=== PATIENT | female | born 1975 | race African-American/Black ===

== ENCOUNTER → 2018-10-11 | Outpatient (CLI) | payer OTHER ==
[~2018-10-11] MED LIST: ADULT LOW DOSE81 MG PO; CLOPIDOGREL75 MG PO; FENOFIBRATE54 MG PO; IRON325 PO; LIPITOR 20 MG T20 M1 PO; NICOTINE TRANSD14 M1 TRANSDERM; PHENERGAN 25 MG25 M1 PO; TAMIFLU PO; VENTOLIN17 GM INH; VICODIN 5-5001 EACH PO
== END ==
LOC: HYPER 09-23 16:21
DX: T81.89XA Other complications of procedures, not elsewhere classified, initial encounter (principal); L76.34 Postprocedural seroma of skin and subcutaneous tissue following other procedure; F17.200 Nicotine dependence, unspecified, uncomplicated; F32.9 Major depressive disorder, single episode, unspecified; F41.9 Anxiety disorder, unspecified; Z90.710 Acquired absence of both cervix and uterus; Z86.73 Personal history of transient ischemic attack (TIA), and cerebral infarction without residual deficits; Y92.89 Other specified places as the place of occurrence of the external cause; Y83.8 Other surgical procedures as the cause of abnormal reaction of the patient, or of later complication, without mention of misadventure at the time of the procedure

== ENCOUNTER → 2018-10-25 | Outpatient (CLI) | payer OTHER | LOC: HYPER 06:59 | DX: T81.31XD Disruption of external operation (surgical) wound, not elsewhere classified, subsequent encounter (principal); L76.34 Postprocedural seroma of skin and subcutaneous tissue following other procedure; F17.200 Nicotine dependence, unspecified, uncomplicated; F12.90 Cannabis use, unspecified, uncomplicated; F32.9 Major depressive disorder, single episode, unspecified; F41.9 Anxiety disorder, unspecified; Z90.710 Acquired absence of both cervix and uterus; Z86.73 Personal history of transient ischemic attack (TIA), and cerebral infarction without residual deficits; Y83.8 Other surgical procedures as the cause of abnormal reaction of the patient, or of later complication, without mention of misadventure at the time of the procedure ==

== ENCOUNTER → 2018-11-03 | Outpatient (CLI) | payer OTHER | LOC: HYPER 07:03 | DX: T81.89XD Other complications of procedures, not elsewhere classified, subsequent encounter (principal); L76.34 Postprocedural seroma of skin and subcutaneous tissue following other procedure; F32.9 Major depressive disorder, single episode, unspecified; F41.9 Anxiety disorder, unspecified; F17.200 Nicotine dependence, unspecified, uncomplicated; Z90.710 Acquired absence of both cervix and uterus; Z86.73 Personal history of transient ischemic attack (TIA), and cerebral infarction without residual deficits; Y83.8 Other surgical procedures as the cause of abnormal reaction of the patient, or of later complication, without mention of misadventure at the time of the procedure ==

== ENCOUNTER → 2018-11-24 | Outpatient (CLI) | payer OTHER | LOC: HYPER 11-15 06:50 | DX: T81.89XD Other complications of procedures, not elsewhere classified, subsequent encounter (principal); L76.34 Postprocedural seroma of skin and subcutaneous tissue following other procedure; F17.200 Nicotine dependence, unspecified, uncomplicated; F12.90 Cannabis use, unspecified, uncomplicated; F32.9 Major depressive disorder, single episode, unspecified; F41.9 Anxiety disorder, unspecified; Z86.73 Personal history of transient ischemic attack (TIA), and cerebral infarction without residual deficits; Z90.710 Acquired absence of both cervix and uterus; Y83.8 Other surgical procedures as the cause of abnormal reaction of the patient, or of later complication, without mention of misadventure at the time of the procedure ==

== ENCOUNTER → 2018-12-07 | Outpatient (CLI) | payer OTHER | LOC: HYPER 07:08 | DX: T81.89XD Other complications of procedures, not elsewhere classified, subsequent encounter (principal); L76.34 Postprocedural seroma of skin and subcutaneous tissue following other procedure; F17.200 Nicotine dependence, unspecified, uncomplicated; F12.90 Cannabis use, unspecified, uncomplicated; F32.9 Major depressive disorder, single episode, unspecified; F41.9 Anxiety disorder, unspecified; Z90.710 Acquired absence of both cervix and uterus; Z86.73 Personal history of transient ischemic attack (TIA), and cerebral infarction without residual deficits; Y83.8 Other surgical procedures as the cause of abnormal reaction of the patient, or of later complication, without mention of misadventure at the time of the procedure ==

== ENCOUNTER → 2019-04-14 | Outpatient (CLI) | payer OTHER | LOC: ULTRA 08:34 | DX: K80.20 Calculus of gallbladder without cholecystitis without obstruction (principal); Z88.0 Allergy status to penicillin ==